=== PATIENT | female | born 2000 | race Caucasian/White ===

== ENCOUNTER → 2020-01-22 13:53 | Outpatient (BNVA) | payer MEDICAID, SELFPAY | PROVIDERS: Visit Provider Nurse Practitioner Family | DX: N73.0 Acute parametritis and pelvic cellulitis (principal); N73.9 Female pelvic inflammatory disease, unspecified; Z30.9 Encounter for contraceptive management, unspecified | CPT/HCPCS: 85025; 85651; 87070 ==

== ENCOUNTER 2020-03-22 19:53 | Emergency (ER) | payer MEDICAID, SELFPAY ==
[2020-03-22 19:56] VITALS: BP 125/73; PULSE 92; RESP 16; TEMP 36.6; O2SAT 100; BMI 23.6
[2020-03-22 20:09] LABS: Add Urine Microscopic? NO
[2020-03-22 20:19] LABS: Basophils % 0.2 %; Eosinophils # 0.4 10^3/uL (0.0-0.8); Hematocrit 38.9 % (37.0-47.0); Hemoglobin 12.4 g/dL (11.5-15.3); Lymphocytes % 33.3 %; Mean Corpuscular HGB Conc 31.9 g/dL (30.0-36.0); Mean Corpuscular Hemoglobin 29.2 pg (28.0-34.0); Mean Corpuscular Volume 91.7 fL (81-99); Mean Platelet Volume 10.3 fL (7.4-10.4); Monocytes # 0.7 10^3/uL (0.2-0.9); Monocytes % 7.4 %; Neutrophils # 4.9 10^3/uL (1.8-8.0); Neutrophils % 54.9 %; Nucleated Red Blood Cells % 0 %; Platelet Count 248 10^3/cmm (130-400); Red Blood Count 4.24 10^6/uL (4.1-5.3); Red Cell Distribution Width 13.1 % (12.1-15.1); White Blood Count 8.9 10^3/uL (4.5-13.0)
[2020-03-22 20:32] LABS: Bilirubin Urine Neg (NEGATIVE); Blood Urine Neg (Negative); Glucose Urine UA Norm (Normal); Ketones Urine Negative (Negative); Leukocyte Esterase Urine Negative (Negative); Nitrate Urine Negative (Negative); Protein Urine Neg (Negative); Specific Gravity, Urine 1.005 (1.005-1.030); Urine Appearance Clear (CLEAR); Urine Color Straw (Yellow); Urobilinogen Urine Norm (Negative); pH Urine 7 (5-7)
[2020-03-22 20:34] LABS: HCG, Serum Qual Negative (Negative)
[2020-03-22 20:35] LABS: Alanine Aminotransferase 7 U/L (0-33); Albumin Level 4.6 g/dL (3.5-5.2); Alkaline Phosphatase 68 IU/L (35-105); Anion Gap 12.5 (5-19); Aspartate Amino Transferase 14 U/L (0-32); Blood Urea Nitrogen 5 mg/dL (6-20); C Reactive Protein 4.5 mg/L (0.0-4.9); Calcium 9.5 mg/dL (8.5-10.5); Carbon Dioxide 24 mmol/L (22-29); Chloride 106 mmol/L (98-107); Globulin 3.4 g/dL (1.3-4.6); Glomerular Filtration Rate 127.5 mL/min (90-130); Glucose 95 mg/dL (65-115); Lipase 19 U/L (13-60); Osmolality Calculated 284 mOsm/kg (285-295); Potassium 3.5 mmol/L (3.5-5.1); Sodium 139 mmol/L (136-145); Total Bilirubin 0.3 mg/dL (0.15-1.2)
--- NOTE | 2020-03-22 20:44 | ED_ITS ---
HPI - Abdominal Pain General: Chief Complaint: Abdominal Pain Stated Complaint: abdominal pain Time Seen by Provider: 03/22/20 19:55 History of Present Illness: HPI narrative: Healthy 20-year-old female complaining of left sided belly pain for the past several days now. No fever, no vomiting, mild amount of diarrhea. No blood in the stool. No vaginal discharge currently. She states I might have a yeast infection . MD elicited complaint: abdominal pain Pertinent past history: other (Diagnosis of possible pelvic inflammatory disease 2 months ago.) Pain Consistency: intermittent Location: LLQ Severity: moderate Radiation: back (Left) Exacerbating factors: nothing Relieving factors: nothing Associated Symptoms: Denies fever(s), hematuria and vomiting Related Data: Date of Last Menstrual Period: 01/15/20 Review of Systems Const: Denies: fever Eyes: Denies: blurry vision ENMT: Denies: painful swallowing or nose bleeds Card: Denies: chest pain, palpitations or irregular heart rhythm Resp: Denies: shortness of breath, productive cough, non-productive cough or wheezing GI: Denies: vomiting : Denies: blood in urine Musc: Reports: back pain; Denies: neck pain, redness or joint warmth Skin/Breast: Denies: rash, itching or redness Neuro: Denies: headache or dizziness Psych: Denies: anxiety PFSH ED PFSH: Social History (Updated 01/22/20 @ 13:15 by Kary Hughes LPN) Smoking and tobacco status: current every day smoker Female Reproductive History: Date of last menstrual period: 01/15/20 Physical Exam Const: GENERAL APPEARANCE: well developed ORIENTATION/CONSCIOUSNESS: Yes oriented to person, Yes oriented to place and Yes oriented to time HENMT: COMMON NORMALS: normocephalic, external ears normal and external nose normal HEAD & SCALP: normocephalic NOSE: external nose normal EXTERNAL EAR: Yes external ears normal Eye: COMMON NORMALS: PERRL, EOMs intact bilaterally and conjunctivae normal EYELID: eyelids normal CONJUNCTIVA: Yes conjunctivae normal PUPIL: Yes PERRL Chest: COMMONS NORMALS: inspection of chest normal CHEST: No tenderness Resp: COMMON NORMALS: clear to auscultation bilaterally EFFORT & INSPECTION: No tachypneic, No respiratory distress, No retractions, No uses accessory muscles and No tracheal deviation AUSCULTATION: clear to auscultation bilaterally, no rhonchi, no wheezes and lung sounds not diminished Cardio: COMMON NORMALS: regular rate and regular rhythm RATE: regular rate RHYTHM: regular rhythm HEART SOUNDS: no murmurs PERIPHERAL PULSES: radial pulses present GI: COMMON NORMALS: soft to palpation INSPECTION: No abdominal distension AUSCULTATION: No hyperactive bowel sounds and No hypoactive bowel sounds PALPATION: Yes soft, Yes tender Details: LLQ (Mild), No guarding and No rigid PERCUSSION: no dullness to percussion and no tympanic to percussion : COMMON NORMALS: Yes no CVA tenderness BLADDER/KIDNEY EXAM: Yes no CVA tenderness Back/Pelvis: COMMON NORMALS: no CVA tenderness Neuro: SENSORIUM/ORIENTATION: Yes oriented to person, Yes oriented to place and Yes oriented to time Psych: COMMON NORMALS: mental status grossly normal Skin: COMMON NORMALS: no rashes or lesions noted GENERAL SKIN EXAM: no rashes or lesions noted Course Vital Signs: Vital signs: Vital Signs Temperature 97.9 F 03/22/20 19:56 Pulse Rate 72 03/22/20 21:09 Respiratory Rate 18 03/22/20 21:09 Blood Pressure 132/78 03/22/20 21:09 Pulse Oximetry 98 03/22/20 21:09 MDM - Abdominal Pain MDM Narrative: Medical decision making narrative: 20-year-old female, non. She complains of left lower abdominal and pelvic pain. She denies any significant discharge at this point. She was incompletely treated for pelvic inflammatory disease supposedly. We will run GC chlamydia and trichomoniasis on her urine. her labs are normal. We will send her for an outpatient ultrasound of her pelvis as there is no pressing emergent need for 1 tonight. Lab Data: Labs: Lab Results 03/22/20 03/22/20 03/22/20 Range/Units 20:05 20:12 20:12 WBC 8.9 (4.5-13.0) 10^3/ uL RBC 4.24 (4.1-5.3) 10^6/u L Hgb 12.4 (11.5-15.3) g/dL Hct 38.9 (37.0-47.0) % MCV 91.7 (81-99) fL MCH 29.2 (28.0-34.0) pg MCHC 31.9 (30.0-36.0) g/dL RDW 13.1 (12.1-15.1) % Plt Count 248 (130-400) 10^3/c mm MPV 10.3 (7.4-10.4) fL Neut % (Auto) 54.9 % Lymph % (Auto) 33.3 % Shannon % (Auto) 7.4 % Eos % (Auto) 4.0 % Baso % (Auto) 0.2 % Neut # (Auto) 4.9 (1.8-8.0) 10^3/u L Lymph # (Auto) 3.0 (1.5-6.5) 10^3/u L Shannon # (Auto) 0.7 (0.2-0.9) 10^3/u L Eos # (Auto) 0.4 (0.0-0.8) 10^3/u L Baso # (Auto) 0.0 (0.0-0.1) 10^3/u L Nucleated RBC % (a uto) 0 % Nucleated RBCs # 0.0 /100WBC Sodium 139 (136-145) mmol/L Potassium 3.5 (3.5-5.1) mmol/L Chloride 106 (98-107) mmol/L Carbon Dioxide 24 (22-29) mmol/L Anion Gap 12.5 (5-19) BUN 5 L (6-20) mg/dL Creatinine 0.6 (0.5-0.9) mg/dL GFR Calculation 127.5 (90-130) mL/min Glucose 95 (65-115) mg/dL Calculated Osmolal ity 284 L (285-295) mOsm/k g Calcium 9.5 (8.5-10.5) mg/dL Total Bilirubin 0.3 (0.15-1.2) mg/dL AST 14 (0-32) U/L ALT 7 (0-33) U/L Alkaline Phosphata se 68 (35-105) IU/L C-Reactive Protein 4.5 (0.0-4.9) mg/L Total Protein 8.0 (6.6-8.7) g/dL Albumin 4.6 (3.5-5.2) g/dL Globulin 3.4 (1.3-4.6) g/dL Lipase 19 (13-60) U/L HCG, Qual (Negative) Urine Color Straw (Yellow) Urine Appearance Clear (CLEAR) Urine pH 7 (5-7) Ur Specific Gravit y 1.005 (1.005-1.030) Urine Protein Neg (Negative) Urine Glucose (UA) Norm (Normal) Urine Ketones Negative (Negative) Urine Blood Neg (Negative) Urine Nitrate Negative (Negative) Urine Bilirubin Neg (NEGATIVE) Urine Urobilinogen Norm (Negative) mg/dL Ur Leukocyte Camryn ase Negative (Negative) 03/22/20 Range/Units 20:12 WBC (4.5-13.0) 10^3/ uL RBC (4.1-5.3) 10^6/u L Hgb (11.5-15.3) g/dL Hct (37.0-47.0) % MCV (81-99) fL MCH (28.0-34.0) pg MCHC (30.0-36.0) g/dL RDW (12.1-15.1) % Plt Count (130-400) 10^3/c mm MPV (7.4-10.4) fL Neut % (Auto) % Lymph % (Auto) % Shannon % (Auto) % Eos % (Auto) % Baso % (Auto) % Neut # (Auto) (1.8-8.0) 10^3/u L Lymph # (Auto) (1.5-6.5) 10^3/u L Shannon # (Auto) (0.2-0.9) 10^3/u L Eos # (Auto) (0.0-0.8) 10^3/u L Baso # (Auto) (0.0-0.1) 10^3/u L Nucleated RBC % (a uto) % Nucleated RBCs # /100WBC Sodium (136-145) mmol/L Potassium (3.5-5.1) mmol/L Chloride (98-107) mmol/L Carbon Dioxide (22-29) mmol/L Anion Gap (5-19) BUN (6-20) mg/dL Creatinine (0.5-0.9) mg/dL GFR Calculation (90-130) mL/min Glucose (65-115) mg/dL Calculated Osmolal ity (285-295) mOsm/k g Calcium (8.5-10.5) mg/dL Total Bilirubin (0.15-1.2) mg/dL AST (0-32) U/L ALT (0-33) U/L Alkaline Phosphata se (35-105) IU/L C-Reactive Protein (0.0-4.9) mg/L Total Protein (6.6-8.7) g/dL Albumin (3.5-5.2) g/dL Globulin (1.3-4.6) g/dL Lipase (13-60) U/L HCG, Qual Negative (Negative) Urine Color (Yellow) Urine Appearance (CLEAR) Urine pH (5-7) Ur Specific Gravit y (1.005-1.030) Urine Protein (Negative) Urine Glucose (UA) (Normal) Urine Ketones (Negative) Urine Blood (Negative) Urine Nitrate (Negative) Urine Bilirubin (NEGATIVE) Urine Urobilinogen (Negative) mg/dL Ur Leukocyte Camryn ase (Negative) Discharge Plan Discharge Patient Disposition: Home, Self-Care Clinical Impression: Abdominal pain Qualifiers: Abdominal location: left lower quadrant Qualified Code(s): R10.32 - Left lower quadrant pain Condition: Stable Prescriptions: New ketorolac 10 mg tablet 10 mg PO Q6H Qty: 10 RF: 0 Discharge Orders: Discharge Order (Routine); Ordered 03/22/20 Ordered By: Familia Freeman Referrals: Meagan Addison FNP [Nurse Practitioner] - 4-7 days Discharge Diet: Advance as tolerated Discharge Activity: Resume usual activity Patient Instructions: Abdominal Pain (ED) Activity Restrictions/Additional Instructions: You will get a call from the manager case management to set up your outpatient ultrasound of the pelvis. Return for fever greater than 100, vomiting liquids or medications, uncontrolled vaginal bleeding, other concerning symptoms. Discharge Date/Time: 03/22/20 21:10 Coding Level of Care Code ED Copy And Print Associate for [employer] Fwd Exam Comprehensive
[2020-03-22 21:09] VITALS: BP 132/78; PULSE 72; RESP 18; O2SAT 98
--- NOTE | 2020-03-24 10:28 | DCPLANNER ---
financial services manager had message to schedule an outpatient ultra sound for patient. financial services manager had order signed, called patient to confirm that patient wanted to have the ultrasound scheduled, and to confirm who patients sees for primary care. financial services manager was unable to speak with patient at this time, and unable to leave a voicemail for patient at this time.
--- NOTE | 2020-04-16 14:32 | DCPLANNER ---
Patient has an ultrasound scheduled for Monday, May 11, 2020 at 3:45.
--- NOTE | 2020-05-15 14:22 | DCPLANNER ---
Patient had an ultrasound scheduled for 05.11.20, patient did not attend the appointment.
== END 2020-03-22 21:10 | disposition home or self-care (01) ==
PROVIDERS: Emergency Provider Emergency Medicine
DX: R10.32 Left lower quadrant pain (principal); F17.210 Nicotine dependence, cigarettes, uncomplicated
CPT/HCPCS: 12345; 36415; 80053; 81003; 83690; 84703; 85025; 86140; 96360; 99282; 99283; A9270